=== PATIENT | female | born 1980 | race Caucasian/White ===

== ENCOUNTER 2017-08-26 19:12 | Emergency (ER) | payer SELFPAY ==
[~2017-08-26] VITALS: Ht 165.1 cm; Wt 100.0 kg
[~2017-08-26 19:12] MED LIST: BENA1TAB18; PARO-41
[2017-08-26 19:22] VITALS: BP 150/91
[2017-08-26] MEDS ORDERED: KETOROLAC 30MG/ML VIAL IV STA (21:02)
[2017-08-26] MEDS ORDERED: ONDANSETRON HCL 4MG/2ML VIAL IV STA (21:02)
[2017-08-26] MEDS ORDERED: SODIUM CHLORIDE 0.9% 1,000 ML IV ONE (21:02)
[2017-08-26] MEDS ORDERED: HYDROCHLOROTHIAZIDE 12.5MG CAPSULE PO ONE (21:15)
[2017-08-26] MEDS ORDERED: BENAZEPRIL 20MG TABLET PO ONE (21:15)
[2017-08-26 21:48] LABS: BASOPHILS % 0.6 % (0.0-2.0); EOSINOPHILS % 1.4 % (0.0-5.0); HEMATOCRIT. 41.7 % (36.0-48.0); HEMOGLOBIN. 14.5 g/dL (12.0-16.0); MEAN CORPUSCULAR HEMOGLOBIN 32.1 pg (28.0-32.0); MEAN CORPUSCULAR VOLUME 92.3 fL (81.0-99.0); MEAN PLATELET VOLUME 8.2 fl (7.4-10.4); MONOCYTES % 8.1 % (2.0-8.0); NEUTROPHILS % 54.9 % (40.0-76.0); PLATELET 321 x1000/uL (130-400); RED BLOOD CELL COUNT 4.51 mill/uL (4.2-5.4); RED CELL DISTRIBUTION WIDTH 12.6 % (11.6-14.6)
[2017-08-26 21:55] LABS: PROTHROMBIN TIME 10.7 sec (9.4-11.6)
[2017-08-26 22:00] LABS: CHLORIDE 113 mEq/L (98-107)
== END 2017-08-26 23:37 | disposition left against medical advice (07) ==
LOC: ER 19:46
DX: I10 Essential (primary) hypertension (principal); R07.89 Other chest pain; G43.909 Migraine, unspecified, not intractable, without status migrainosus; Z90.49 Acquired absence of other specified parts of digestive tract
CPT/HCPCS: 36415; 80053; 83690; 84484; 85025; 85610; 93005; 99285; J7030

== ENCOUNTER 2018-06-25 18:10 | Emergency (ER) | payer SELFPAY ==
[~2018-06-25] VITALS: Ht 172.7 cm; Wt 102.0 kg
[2018-06-25] MEDS ORDERED: KETOROLAC 60MG/2ML VIAL IM STA (22:30)
[2018-06-25 23:07] LABS: BASOPHILS % 1.3 % (0.0-2.0); EOSINOPHILS % 1.8 % (0.0-5.0); HEMATOCRIT. 42.5 % (36.0-48.0); HEMOGLOBIN. 14.5 g/dL (12.0-16.0); LYMPHOCYTES % 32.9 % (20.0-50.0); MEAN CORPUSCULAR HEMOGLOBIN 31.9 pg (28.0-32.0); MEAN CORPUSCULAR VOLUME 93.4 fL (81.0-99.0); MEAN PLATELET VOLUME 8.4 fl (7.4-10.4); MONOCYTES % 7.7 % (2.0-8.0); NEUTROPHILS % 56.3 % (40.0-76.0); PLATELET 311 x1000/uL (130-400); RED BLOOD CELL COUNT 4.55 mill/uL (4.2-5.4); RED CELL DISTRIBUTION WIDTH 12.4 % (11.6-14.6)
[2018-06-25 23:11] LABS: CHLORIDE 106 mEq/L (98-107)
[2018-06-25 23:15] LABS: HCG SCREEN NEGATIVE
[2018-06-26 00:13] VITALS: BP 111/52
== END 2018-06-26 00:28 | disposition home or self-care (01) ==
LOC: ER 18:10
DX: R07.89 Other chest pain (principal); F41.9 Anxiety disorder, unspecified; R03.0 Elevated blood-pressure reading, without diagnosis of hypertension
CPT/HCPCS: 36415; 71045; 80053; 81025; 84484; 84703; 85025; 93005; 96372; 99284; J1885

== ENCOUNTER 2018-09-05 19:43 | Emergency (ER) | payer BC ==
[~2018-09-05] VITALS: Ht 162.6 cm; Wt 100.0 kg
[2018-09-05 21:13] LABS: CLARITY URINE CLEAR (CLEAR); COLOR URINE YELLOW (YELLOW); KETONES URINE NEGATIVE (NEGATIVE); LEUKOCYTE ESTERASE URINE NEGATIVE (NEGATIVE); NITRITE URINE NEGATIVE (NEGATIVE); OCCULT BLOOD URINE NEGATIVE (NEGATIVE); PROTEIN URINE NEGATIVE (NEGATIVE); SPECIFIC GRAVITY URINE 1.023 (1.005-1.030)
[2018-09-05] MEDS ORDERED: SODIUM CHLORIDE 0.9% 1,000 ML IV ONE (22:03)
[2018-09-05] MEDS ORDERED: MORPHINE SULFATE 4 MG/ML CPJ (NOT FOR IM USE) IV STA (22:03)
[2018-09-05] MEDS ORDERED: ONDANSETRON HCL 4MG/2ML INJ IV ONE (22:30)
[2018-09-05 22:41] LABS: BASOPHILS % 0.5 % (0.0-2.0); EOSINOPHILS % 1.3 % (0.0-5.0); HEMATOCRIT. 43.7 % (36.0-48.0); HEMOGLOBIN. 14.9 g/dL (12.0-16.0); LYMPHOCYTES % 26.7 % (20.0-50.0); MEAN CORPUSCULAR HEMOGLOBIN 32.3 pg (28.0-32.0); MEAN CORPUSCULAR VOLUME 94.9 fL (81.0-99.0); MEAN PLATELET VOLUME 8.4 fl (7.4-10.4); MONOCYTES % 9.5 % (2.0-8.0); PLATELET 307 x1000/uL (130-400); RED BLOOD CELL COUNT 4.61 mill/uL (4.2-5.4)
[2018-09-05 22:44] LABS: CHLORIDE 106 mEq/L (98-107)
[2018-09-05 22:45] LABS: PROTHROMBIN TIME 10.3 sec (9.1-11.1)
[2018-09-06 00:13] VITALS: BP 147/87
== END 2018-09-06 00:54 | disposition home or self-care (01) ==
LOC: ER 19:43
DX: R10.30 Lower abdominal pain, unspecified (principal); I10 Essential (primary) hypertension; Z90.49 Acquired absence of other specified parts of digestive tract
CPT/HCPCS: 36415; 74176; 80053; 81003; 81025; 83690; 85025; 85610; 99284; J2270; J2405; J7030

== ENCOUNTER 2018-09-17 23:16 | Emergency (ER) | payer BC ==
[~2018-09-17] VITALS: Ht 157.5 cm; Wt 100.0 kg
[2018-09-18] MEDS ORDERED: IBUPROFEN 600MG TABLET PO NR
[2018-09-18 04:56] VITALS: BP 104/69
== END 2018-09-18 05:25 | disposition home or self-care (01) ==
LOC: ER 23:16
DX: J11.1 Influenza due to unidentified influenza virus with other respiratory manifestations (principal); I10 Essential (primary) hypertension; Z90.49 Acquired absence of other specified parts of digestive tract
CPT/HCPCS: 71045; 81025; 87804; 93005; 99284

== ENCOUNTER 2019-03-25 18:32 | Emergency (ER) | payer BC ==
[~2019-03-25] VITALS: Ht 162.6 cm; Wt 104.0 kg
[2019-03-25 20:35] VITALS: BP 136/90
== END 2019-03-25 21:59 | disposition left against medical advice (07) ==
LOC: ER 18:32
DX: R07.9 Chest pain, unspecified (principal); Z53.21 Procedure and treatment not carried out due to patient leaving prior to being seen by health care provider
CPT/HCPCS: 93005

== ENCOUNTER 2019-06-08 15:44 | Emergency (ER) | payer BC | END 2019-06-08 21:09 | disposition left against medical advice (07) | LOC: ER 15:53 | DX: R07.89 Other chest pain (principal); Z53.21 Procedure and treatment not carried out due to patient leaving prior to being seen by health care provider ==

== ENCOUNTER 2019-06-10 04:41 | Emergency (ER) | payer BC ==
[~2019-06-10] VITALS: Ht 162.6 cm; Wt 105.0 kg
[2019-06-10] MEDS ORDERED: FLUTICASONE PROPIONATE 50MCG/SPRAY BOTTLE BOTHNSTRLS STA (08:57)
[2019-06-10] MEDS ORDERED: KETOROLAC 30MG/ML VIAL IV ONE (09:00)
[2019-06-10] MEDS ORDERED: MORPHINE SULFATE 4 MG/ML CPJ (NOT FOR IM USE) IV ONE (09:00)
[2019-06-10 09:17] LABS: BASOPHILS % 0.8 % (0.0-2.0); HEMATOCRIT. 41.9 % (36.0-48.0); HEMOGLOBIN. 14.7 g/dL (12.0-16.0); LYMPHOCYTES % 15.2 % (20.0-50.0); MEAN CORPUSCULAR HEMOGLOBIN 32.4 pg (28.0-32.0); MEAN CORPUSCULAR VOLUME 92.3 fL (81.0-99.0); MONOCYTES % 6.2 % (2.0-8.0); NEUTROPHILS % 76.8 % (40.0-76.0); PLATELET 306 x1000/uL (130-400); RED BLOOD CELL COUNT 4.54 mill/uL (4.2-5.4); RED CELL DISTRIBUTION WIDTH 12.7 % (11.6-14.6)
[2019-06-10 09:25] LABS: CHLORIDE 105 mEq/L (98-107)
[2019-06-10 13:57] VITALS: BP 122/80
== END 2019-06-10 14:00 | disposition home or self-care (01) ==
LOC: ER 04:41
DX: R07.89 Other chest pain (principal); B34.9 Viral infection, unspecified; I10 Essential (primary) hypertension; R09.81 Nasal congestion
CPT/HCPCS: 36415; 71045; 80053; 81025; 84484; 85025; 87804; 93005; 96374; 96375; 99284; J1885; J2270

== ENCOUNTER 2020-03-21 20:48 | Emergency (ER) | payer BC ==
[~2020-03-21] VITALS: Ht 162.6 cm; Wt 115.0 kg
[2020-03-22] MEDS ORDERED: KETOROLAC 60MG/2ML VIAL IM ONE (01:00)
[2020-03-22] MEDS ORDERED: DIPHENHYDRAMINE 25MG CAPSULE PO ONE (01:00)
[2020-03-22] MEDS ORDERED: PROCHLORPERAZINE MALEATE 10MG TABLET PO ONE (01:00)
[2020-03-22 03:10] VITALS: BP 132/64
== END 2020-03-22 03:15 | disposition home or self-care (01) ==
LOC: ER 20:48
DX: R51.9 Headache, unspecified (principal); G89.29 Other chronic pain; M79.662 Pain in left lower leg; I10 Essential (primary) hypertension
CPT/HCPCS: 70450; 81025; 93005; 96372; 99285; J1885; Q0163; Q0164

== ENCOUNTER 2021-11-08 19:31 | Inpatient (IN) | payer BC ==
[~2021-11-08] VITALS: Ht 160 cm; Wt 104.3 kg
[2021-11-08 20:44] LABS: BASOPHILS % 0.8 % (0.0-2.0); EOSINOPHILS % 1.2 % (0.0-5.0); HEMATOCRIT. 39.3 % (36.0-48.0); HEMOGLOBIN. 13.8 g/dL (12.0-16.0); LYMPHOCYTES % 28.6 % (20.0-50.0); MEAN CORPUSCULAR HEMOGLOBIN 32.7 pg (28.0-32.0); MEAN CORPUSCULAR VOLUME 93.4 fL (81.0-99.0); MEAN PLATELET VOLUME 8.3 fl (7.4-10.4); MONOCYTES % 8.9 % (2.0-8.0); NEUTROPHILS % 60.5 % (40.0-76.0); PLATELET 318 x1000/uL (130-400); RED BLOOD CELL COUNT 4.21 mill/uL (4.2-5.4); RED CELL DISTRIBUTION WIDTH 13.2 % (11.6-14.6)
[2021-11-08] MEDS ORDERED: CLOPIDOGREL 75MG TABLET PO ONE (20:45)
[2021-11-08] MEDS ORDERED: ASPIRIN 81MG TABLET PO ONE (20:45)
[2021-11-08 20:53] LABS: CHLORIDE 103 mEq/L (98-107)
[2021-11-08 20:54] LABS: HCG SCREEN NEGATIVE
[2021-11-08 21:03] LABS: ETHANOL BLOOD < 10 mg/dL
[2021-11-08] MEDS ORDERED: IOHEXOL-350 100 ML BOTTLE ONE (22:50)
[2021-11-08 22:51] LABS: CLARITY URINE CLEAR (CLEAR); COLOR URINE YELLOW (YELLOW); KETONES URINE NEGATIVE (NEGATIVE); LEUKOCYTE ESTERASE URINE NEGATIVE (NEGATIVE); NITRITE URINE NEGATIVE (NEGATIVE); OCCULT BLOOD URINE TRACE (NEGATIVE); PH URINE 6.5 (4.5-8.0); PROTEIN URINE NEGATIVE (NEGATIVE); SPECIFIC GRAVITY URINE 1.048 (1.005-1.030); UROBILINOGEN URINE 0.2 E.U./dL (0.2-1.0)
[2021-11-08 23:01] LABS: *AMPHETAMINES SCREEN URINE NEGATIVE (NEGATIVE); *BARBITURATES SCREEN URINE NEGATIVE (NEGATIVE); *BENZODIAZEPINES SCREEN URINE NEGATIVE (NEGATIVE); *COCAINE SCREEN URINE NEGATIVE (NEGATIVE); CANNABINOID URINE SCREEN NEGATIVE (NEGATIVE); METHADONE URINE SCREEN NEGATIVE (NEGATIVE); OPIATES URINE SCREEN NEGATIVE (NEGATIVE); PHENCYCLIDINE URINE SCREEN NEGATIVE (NEGATIVE)
[2021-11-09] VITALS (7 sets, daily range): BP systolic 103–152; BP diastolic 55–100
[2021-11-09] MEDS ORDERED: POTASSIUM CHLORIDE 20MEQ TABLET SR PO NR (00:15)
[2021-11-09] MEDS ORDERED: DOCUSATE SODIUM 100MG CAPSULE PO PRN (00:15)
[2021-11-09] MEDS ORDERED: ACETAMINOPHEN 325MG TABLET PO PRN (00:15)
[2021-11-09] MEDS ORDERED: ONDANSETRON HCL 4MG/2ML INJ IV PRN (00:15)
[2021-11-09 06:47] LABS: BASOPHILS % 0.8 % (0.0-2.0); EOSINOPHILS % 1.4 % (0.0-5.0); HEMATOCRIT. 40.8 % (36.0-48.0); HEMOGLOBIN. 14.1 g/dL (12.0-16.0); LYMPHOCYTES % 24.5 % (20.0-50.0); MEAN CORPUSCULAR VOLUME 92.6 fL (81.0-99.0); MEAN PLATELET VOLUME 7.8 fl (7.4-10.4); MONOCYTES % 6.6 % (2.0-8.0); NEUTROPHILS % 66.7 % (40.0-76.0); PLATELET 327 x1000/uL (130-400); RED BLOOD CELL COUNT 4.41 mill/uL (4.2-5.4)
[2021-11-09 06:53] LABS: CHLORIDE 107 mEq/L (98-107)
[2021-11-09 07:07] LABS: HDL CHOLESTEROL 45 mg/dL (40-59); LDL CHOLESTEROL 126 mg/dL (5-100)
[2021-11-09] MEDS ORDERED: LOSA50TA41 PO (08:53)
[2021-11-09] MEDS ORDERED: ENOXAPARIN 30MG/0.3ML SYR SUBCUT SCH (09:00)
[2021-11-09] MEDS ORDERED: LISINOPRIL 20MG TABLET PO SCH (09:00)
[2021-11-09] MEDS ORDERED: ASPIRIN 325MG EC TABLET PO SCH (09:00)
[2021-11-09] MEDS ORDERED: FAMOTIDINE 20MG TABLET PO SCH (09:00)
[2021-11-09] MEDS ORDERED: SERTRALINE HCL 50MG TABLET PO SCH (09:00)
[2021-11-09] MEDS ORDERED: LORAZEPAM 2MG/ML CPJ IV NR (11:30)
[2021-11-09] MEDS ORDERED: KETOROLAC 30MG/ML VIAL IV PRN (12:00)
[2021-11-09] MEDS ORDERED: ATORVASTATIN CALCIUM 40MG TABLET PO SCH (21:00)
[2021-11-09] MEDS ORDERED: NAPR-681 PO (21:15)
== END 2021-11-09 21:40 | disposition home or self-care (01) | DRG 103 ==
LOC: ER 19:31 → MICUSO 23:52 → ENRESERV 11-09 02:41 → 6WST 11-09 03:03
PROVIDERS: ADMIT Internal Medicine Pulmonary Disease; ATTEND Internal Medicine Pulmonary Disease
DX: G43.809 Other migraine, not intractable, without status migrainosus (principal); E87.1 Hypo-osmolality and hyponatremia; Z68.41 Body mass index [BMI] 40.0-44.9, adult; E78.5 Hyperlipidemia, unspecified; E87.6 Hypokalemia; E66.01 Morbid (severe) obesity due to excess calories; I10 Essential (primary) hypertension; M79.602 Pain in left arm; Z71.3 Dietary counseling and surveillance; Z79.899 Other long term (current) drug therapy
CPT/HCPCS: 36415; 70496; 70498; 70551; 71045; 80048; 80053; 80061; 80305; 80320; 81003; 82962; 83036; 84443; 84484; 84703; 85025; 93005; 93306; 97162; 97166; 99291; J1650; J1885; J2060; J2405; Q9967; G0480

== ENCOUNTER 2022-07-14 13:54 | Emergency (ER) | payer BC ==
[~2022-07-14] VITALS: Ht 157.5 cm; Wt 100.0 kg
[~2022-07-14 13:54] MED LIST changes: +LOSA50TA41 PO
[2022-07-14 13:59] VITALS: BP 93/63
[2022-07-14] MEDS ORDERED: ONDA4TAB11 PO (17:27)
[2022-07-14] MEDS ORDERED: MAG-55 PO (17:27)
== END 2022-07-14 18:27 | disposition home or self-care (01) ==
LOC: ER 13:54
DX: A08.4 Viral intestinal infection, unspecified (principal)
CPT/HCPCS: 99282